=== PATIENT | female | born 1960 | race Caucasian/White ===

== ENCOUNTER 2018-05-26 13:54 | Observation (INO) | payer SELFPAY ==
[2018-05-26] MEDS ORDERED: Sodium Chloride 0.9% 1000 ML 1,000 ML IV SCH (16:30)
[2018-05-26 16:39] LABS: Hematocrit 53.7 % (35-47); Hemoglobin 18.7 gm/dl (12.0-16.0); Mean Cell Volume 92.4 fl (78-100); Mean Corpuscular Hgb Concent. 34.8 g/dl (32-36); Platelet Count 71 K/mm3 (150-450); Red Blood Count 5.81 M/mm3 (4.1-5.4); White Blood Count 9.3 K/mm3 (4.0-10.5)
[2018-05-26 16:51] LABS: Mean Corpuscular Hemoglobin 32.1 pg (26-32)
[2018-05-26] MEDS: Lasix 40 MG PO SCH (17:00)
[2018-05-26] MEDS: Apresoline 25 MG TABLET PO SCH ×2 (17:00→22:10)
[2018-05-26] MEDS: Toprol Xl 50 MG PO SCH (17:01)
[2018-05-26 17:03] LABS: ALBUMIN 3.8 g/dL (3.5-5.0); ALKALINE PHOSPHATASE 101 U/L (38-126); AMYLASE 56 U/L (30-110); ANION GAP 11.6 MEQ/L (5-15); BLOOD UREA NITROGEN 8 mg/dL (7-17); CHLORIDE 90 mmol/L (98-107); Calcium 8.6 mg/dL (8.4-10.2); Carbon Dioxide 36 mmol/L (22-30); Creatinine 1 0.84 mg/dL (0.52-1.04); Glucose 123 mg/dL (74-106); SGOT/AST 23 U/L (14-36); SGPT/ALT 12 U/L (0-35); SODIUM 136 mmol/L (137-145); Total Protein 6.8 g/dL (6.3-8.2)
[2018-05-26 17:13] LABS: LIPASE < 10 U/L (23-300); Potassium 2.9 mmol/L (3.5-5.1)
[2018-05-26 17:23] LABS: Appearance CLOUDY (CLEAR); Bilirubin NEGATIVE (NEGATIVE); Blood NEGATIVE Ery/ul (0-5); Glucose NEGATIVE (NEGATIVE); Ketones NEGATIVE (NEGATIVE); Leukocyte Esterase SMALL (NEGATIVE); Nitrite NEGATIVE (NEGATIVE); Protein,Urine Dip >=500 (Negative); Specific Gravity 1.015 (1.005-1.025); Urobilinogen 2 mg/dL (0-1)
[2018-05-26] MEDS: POTASSIUM CHLORIDE 20 mEq IN WATER 100ML 20 MEQ/100 ML BAG IV SCH ×2 (17:40→22:01)
[2018-05-26] MEDS: Sodium Chloride 0.9% 1000 ML 1,000 ML IV SCH (17:55)
[2018-05-26] MEDS ORDERED: Hydromorphone 1 mg/ml Ampule IV PRN (18:12)
[2018-05-26] MEDS ORDERED: Phenergan 25 MG INJ IV PRN (18:13)
[2018-05-26] MEDS ORDERED: Phenergan 25 MG INJ ONE (19:01)
[2018-05-26] MEDS ORDERED: DILAUDID 2 MG INJECTION ONE (19:02)
[2018-05-26 19:05] LABS: Slide Review YES
[2018-05-26] MEDS: DILAUDID 2 MG INJECTION IV PRN (19:14)
[2018-05-26] MEDS: Phenergan 25 MG INJ IV PRN (19:14)
[2018-05-26] MEDS ORDERED: BENADRYL 25 MG CAPSULE PO SCH (22:00)
[2018-05-26] MEDS ORDERED: DP HYDRAM HCL PO SCH (22:00)
[2018-05-26] MEDS ORDERED: Nicoderm CQ 21 MG TOP SCH (22:00)
[2018-05-26] MEDS ORDERED: ACETAMINOPHEN PO SCH (22:00)
[2018-05-26] MEDS ORDERED: NON-FORMULARY ITEM (Hydralazine Hcl [Hydralazine Hcl] 50 MG) PO SCH (22:00)
[2018-05-26] MEDS ORDERED: DESYREL 50 MG PO SCH (22:00)
[2018-05-26] MEDS ORDERED: TYLENOL EXTRA STRENGTH 500 MG PO SCH (22:00)
[2018-05-26] MEDS: Zanaflex 4 MG PO SCH ×2 (22:17→22:33)
[2018-05-27] MEDS: Sodium Chloride 0.9% 1000 ML 1,000 ML IV SCH (04:39)
[2018-05-27] MEDS: Phenergan 25 MG INJ IV PRN (06:13)
[2018-05-27] MEDS: Zofran 4 MG/2 ML VIAL IV PRN ×2 (07:20→13:23)
[2018-05-27] MEDS: DILAUDID 2 MG INJECTION IV PRN ×2 (07:20→13:22)
--- NOTE | 2018-05-27 08:35 | XRAY ---
Indication: Abdominal pain one month. Nausea, vomiting, and bloating. Multiple contiguous axial images obtained through the abdomen and pelvis using enteric contrast only. Comparison: CTA August 17, 2013. Lung bases again demonstrates minimal bibasilar atelectasis/scarring. No infiltrate or effusion. Heart is now enlarged. Again small hiatal hernia. Contrasted stomach and bowel loops appear nonobstructed. Previous reported appendectomy. Rectum now demonstrates circumferential wall thickening with stranding favoring proctitis. Liver also demonstrates new micro-lobular margins favoring cirrhosis. New small abdominal and pelvic ascites. No walled off fluid collection or free air. Stable right renal cortical scarring with calcification. Also interval enlarging 1.9 cm right renal exophytic cyst. Stable small calcified uterine fibroid. Remaining liver, gallbladder, pancreas, spleen, adrenal glands, kidneys, ureters, bladder, and uterus appear unremarkable for noncontrast exam. There remains heavy aortoiliac calcifications without AAA. Osseous structures intact again with lumbosacral junction degenerative disc disease. Stable tiny fatty umbilical hernia. Impression: 1. New rectal wall thickening with stranding favoring proctitis. 2. New cirrhotic liver with small abdomen/pelvic ascites. 3. New cardiomegaly without CHF. 4. Stable right renal scarring with enlarging exophytic cyst. 5. Stable small hiatal hernia, calcified uterine fibroid, heavy arteriosclerotic calcifications, and tiny fatty umbilical hernia. CT DI 22.88
--- NOTE | 2018-05-27 08:37 | XRAY ---
Indication: Abdomen pain. Two-dimensional gallbladder sonogram performed. Comparison: None Gallbladder normally distended without gallstones, wall thickening, or pericholecystic fluid. Common bile duct measures 4.7 mm. Visualized portions of the liver are homogeneous in echogenicity. No large ascites. Remaining visualized pancreas and right kidney sonographically unremarkable. Right kidney measures 11.1 cm in length. Impression: Negative gallbladder sonogram.
[2018-05-27] MEDS: Toprol Xl 50 MG PO SCH (09:45)
[2018-05-27] MEDS: Lasix 40 MG PO SCH (09:45)
[2018-05-27] MEDS: Apresoline 25 MG TABLET PO SCH (09:45)
--- NOTE | 2018-05-27 11:50 | PCM.HP.ADD ---
Addendum to History & Physical - History & Physical Addendum Addendum to History & Physical: This certifies that the History & Physical in the electronic chart reflects the current health status of the patient. If there are changes in the H&P these changes/exceptions are listed as follows.
--- NOTE | 2018-05-27 11:55 | PCM.NOTE ---
Date and Time: 05/27/18 1153 Subjective Assessment: c/o abdominal pain - Review of Systems Constitutional: No Fever, No Chills Eyes: No Symptoms Ears, Nose, & Throat: No Symptoms Respiratory: No Cough, No Short Of Breath Cardiac: No Chest Pain, No Edema, No Syncope Abdominal/Gastrointestinal: Abdominal Pain, Nausea, Vomiting, No Diarrhea Genitourinary Symptoms: No Dysuria Musculoskeletal: No Back Pain, No Neck Pain Skin: No Rash Neurological: No Dizziness, No Focal Weakness, No Sensory Changes Psychological: No Symptoms Endocrine: No Symptoms Hematologic/Lymphatic: No Symptoms Immunological/Allergic: No Symptoms Objective Exam General Appearance: mild distress, alert Neurologic Exam: alert, oriented x 3, cooperative, normal mood/affect, nml cerebellar function, sensation nml, No motor deficits Skin Exam: normal color, warm, dry Eye Exam: PERRL, EOMI, eyes nml inspection Ears, Nose, Throat Exam: normal ENT inspection, pharynx normal, moist mucous membranes Neck Exam: normal inspection, non-tender, supple, full range of motion Respiratory Exam: normal breath sounds, lungs clear, No respiratory distress Cardiovascular Exam: regular rate/rhythm, normal heart sounds Gastrointestinal/Abdomen Exam: soft, normal bowel sounds, tenderness, distention , No mass, No guarding, No ecchymosis, No hepatomegaly, No organomegaly, No splenomegaly Extremity Exam: normal inspection, normal range of motion Back Exam: normal inspection, normal range of motion, No CVA tenderness, No vertebral tenderness Pelvic Exam: deferred Rectal Exam: deferred OBJECTIVE DATA Vital Signs: Vital Signs - 24 hr Temp Pulse Resp BP Pulse Ox 05/27/18 07:22 98 F 77 20 172/112 98 05/27/18 04:02 98.0 F 54 L 14 144/71 95 05/26/18 23:59 98.1 F 73 16 112/55 91 L 05/26/18 23:45 63 18 92 L 05/26/18 19:47 98.3 F 80 22 234/113 97 05/26/18 15:13 98.7 F 98 H 22 200/108 91 L 05/26/18 14:57 98.7 F 98 H 22 200/108 91 L Oxygen-Last 24 hours O2 Percentage 3 Liters = 32% O2 Percentage 3 Liters = 32% O2 Percentage 3 Liters = 32% Pain Assessment - Last Documented Pain Intensity 10 Pain Scale Used 0-10 Pain Scale Intake and Output: Intake & Output 05/24/18 05/25/18 05/26/18 05/27/18 11:59 11:59 11:59 11:59 Intake Total 2069 Output Total 1800 Balance 269 Weight 110.8 kg Lab Results: Lab Results-Last 24 Hours 05/26/18 05/26/18 05/26/18 Range/Units 16:30 16:30 16:30 WBC 9.3 (4.0-10.5) K/mm3 RBC 5.81 H (4.1-5.4) M/mm3 Hgb 18.7 H (12.0-16.0) gm/dl Hct 53.7 H (35-47) % MCV 92.4 (78-100) fl MCH 32.1 H (26-32) pg MCHC 34.8 (32-36) g/dl RDW 16.0 H (11.5-14.0) % Plt Count 71 L (150-450) K/mm3 Sodium 136 L (137-145) mmol/L Potassium 2.9 L* (3.5-5.1) mmol/L Chloride 90 L (98-107) mmol/L Carbon Dioxide 36 H (22-30) mmol/L Anion Gap 11.6 (5-15) MEQ/L BUN 8 (7-17) mg/dL Creatinine 0.84 (0.52-1.04) mg/dL Estimated GFR > 60.0 ML/MIN Glucose 123 H (74-106) mg/dL Lactic Acid 1.3 (0.4-2.0) Calcium 8.6 (8.4-10.2) mg/dL Total Bilirubin 1.10 (0.2-1.3) mg/dL AST 23 (14-36) U/L ALT 12 (0-35) U/L Alkaline Phosphatase 101 (38-126) U/L Serum Total Protein 6.8 (6.3-8.2) g/dL Albumin 3.8 (3.5-5.0) g/dL Amylase 56 (30-110) U/L Lipase < 10 L (23-300) U/L Urine Color (YELLOW) Urine Appearance (CLEAR) Urine pH (5-6) Ur Specific [place] (1.005-1.025) Urine Protein (Negative) Urine Ketones (NEGATIVE) Urine Blood (0-5) Fawad/ul Urine Nitrite (NEGATIVE) Urine Bilirubin (NEGATIVE) Urine Urobilinogen (0-1) mg/dL Ur Leukocyte Esterase (NEGATIVE) Urine WBC (Auto) (0-5) /HPF Urine RBC (Auto) (0-2) /HPF U Epithel Cells (Auto) (FEW) /HPF Urine Bacteria (Auto) (NEGATIVE) /HPF Urine Mucus (Auto) (NEGATIVE) /HPF Urine Glucose (NEGATIVE) mg/dL Slides for Path Review YES 05/26/18 05/27/18 Range/Units 16:50 04:47 WBC (4.0-10.5) K/mm3 RBC (4.1-5.4) M/mm3 Hgb (12.0-16.0) gm/dl Hct (35-47) % MCV (78-100) fl MCH (26-32) pg MCHC (32-36) g/dl RDW (11.5-14.0) % Plt Count (150-450) K/mm3 Sodium (137-145) mmol/L Potassium 3.1 L (3.5-5.1) mmol/L Chloride (98-107) mmol/L Carbon Dioxide (22-30) mmol/L Anion Gap (5-15) MEQ/L BUN (7-17) mg/dL Creatinine (0.52-1.04) mg/dL Estimated GFR ML/MIN Glucose (74-106) mg/dL Lactic Acid (0.4-2.0) Calcium (8.4-10.2) mg/dL Total Bilirubin (0.2-1.3) mg/dL AST (14-36) U/L ALT (0-35) U/L Alkaline Phosphatase (38-126) U/L Serum Total Protein (6.3-8.2) g/dL Albumin (3.5-5.0) g/dL Amylase (30-110) U/L Lipase (23-300) U/L Urine Color YELLOW (YELLOW) Urine Appearance CLOUDY (CLEAR) Urine pH 6.0 (5-6) Ur Specific [place] 1.015 (1.005-1.025) Urine Protein >=500 (Negative) Urine Ketones NEGATIVE (NEGATIVE) Urine Blood NEGATIVE (0-5) Fawad/ul Urine Nitrite NEGATIVE (NEGATIVE) Urine Bilirubin NEGATIVE (NEGATIVE) Urine Urobilinogen 2 (0-1) mg/dL Ur Leukocyte Esterase SMALL (NEGATIVE) Urine WBC (Auto) 6-10 (0-5) /HPF Urine RBC (Auto) 6-10 (0-2) /HPF U Epithel Cells (Auto) MANY (FEW) /HPF Urine Bacteria (Auto) RARE (NEGATIVE) /HPF Urine Mucus (Auto) SLIGHT (NEGATIVE) /HPF Urine Glucose NEGATIVE (NEGATIVE) mg/dL Slides for Path Review Radiology Exams: Radiology Procedures Category Date Time Status ABDOMEN AND PELVIS W/0 CONTRAS [CT] Routine Exams 05/26/18 19:05 Completed GALLBLADDER [US] Routine Exams 05/27/18 08:00 Completed Multi-Disciplinary Progress Notes: Multi-Disciplinary Progress Notes 05/27/18 06:16 Respiratory Note by Ermias Madrigal NURSING/[employer] CALLED TO STATE THAT PT SATS WERE IN LOW 80'S AND THAT THEY HAD PLACED PT ON 3LPM O2. WENT TO ASSESS PT AND SATS WERE 92% ON 3LPM. I WAS NOTIFIED BY [employer] AND NURSING THAT WHEN PT IS ACTIVE OR ASLEEP SATS DROP QUICKLY. I WILL PASS INFO ON TO DAY SHIFT. Initialized on 05/27/18 06:16 - END OF NOTE Assessment/Plan (1) Chronic liver disease and cirrhosis Current Visit: Yes Status: Acute Code(s): K74.60 - UNSPECIFIED CIRRHOSIS OF LIVER; K76.9 - LIVER DISEASE, UNSPECIFIED (2) Proctitis Current Visit: Yes Status: Acute Code(s): K62.89 - OTHER SPECIFIED DISEASES OF ANUS AND RECTUM (3) HTN (hypertension) Current Visit: Yes Status: Acute Qualifiers: Hypertension type: essential hypertension Qualified Code(s): I10 - Essential (primary) hypertension Code(s): I10 - ESSENTIAL (PRIMARY) HYPERTENSION (4) Abdominal pain Current Visit: Yes Status: Acute Qualifiers: Abdominal location: right upper quadrant Qualified Code(s): R10.11 - Right upper quadrant pain Code(s): R10.9 - UNSPECIFIED ABDOMINAL PAIN
[2018-05-27 12:28] VITALS: BP 168/80
--- NOTE | 2018-05-27 12:55 | PCM.DCORD ---
- Discharge Discharge Date: 05/27/18 Disposition: [facility] Condition: Stable Prescriptions: No Action Trazodone HCl 50 mg [Desyrel 50 mg] 100 mg PO HS Hydralazine HCl 50 mg TID Tizanidine HCl 4 mg [Zanaflex 4 MG] 4 mg PO HS Metoprolol Succinate 50 mg [Toprol Xl 50 MG] 50 mg PO DAILY Furosemide 40 mg [Lasix 40 MG] 40 mg PO DAILY Acetaminophen/Dp-Hydram HCl [Tylenol P.m. Ex-Str Geltab] 2 each PO HS Follow up with: KASSIE COSTELLO MD [Primary Care Provider] - 06/06/18 2:15 pm
[2018-05-27 13:45] VITALS: PULSE 61; O2SAT 97
== END 2018-05-27 13:30 | disposition short-term general hospital (02) ==
LOC: MED SURG 14:34
PROVIDERS: ADMIT General Practice; ATTEND General Practice
DX: R10.11 Right upper quadrant pain (principal); K74.60 Unspecified cirrhosis of liver; K62.89 Other specified diseases of anus and rectum; K59.00 Constipation, unspecified; I10 Essential (primary) hypertension
CPT/HCPCS: 36415; 74176; 76705; 80053; 81001; 82150; 83605; 83690; 84132; 85027; 87801; 93268; 94760; G0378; J1170; J2405; J2550; J3480; A9270-GY

== ENCOUNTER 2018-07-21 19:15 | Emergency (ER) | payer SELFPAY ==
--- NOTE | 2018-07-21 19:39 | ERPHSYRPT ---
- History of Present Illness Time Seen by Provider: 07/21/18 19:34 Historian: patient, EMS Exam Limitations: no limitations Patient Subjective Stated Complaint: chest pain Triage Nursing Assessment: Patient brought into ED per EMS and transferred to bed. Patient A+O X 3. Patient complains of Chest pain for one hour prior to calling 911. Patient complains of chest pain in the middle of chest 11/30. Patient had Nitro X 1 in ambulance. Lungs noted to be clear a/p vinayak. S1-S2 heart tones audible. Patient has 2+ non pitting edema to BLE. Physician History: The patient is a 58-year-old female with her brought in by ambulance from home where she complains of a sudden onset of chest pain that began epigastric region while she was resting. The pain began less than an hour ago. She is now completely chest pain-free. She states her chest pain disappeared when the ambulance crew drove over the railroad tracks. The chest pain started like a pinpoint fire and spread throughout her chest. She denies shortness of breath, nausea, or sweating. Her past medical history is significant for recent CO last week where she was treated at [facility] for 4 days. She states she was sent home on nothing new except [facility] penicillin that she did not take because of an allergy, hypertension, possible CHF, appendectomy, and C-sections. The patient smokes. Timing/Duration: today, hour(s) (1), resolved prior to arrival, sudden Activities at Onset: rest Quality: burning Location: central (began in eipigastric area) Chest Pain Radiation: no radiation Severity of Pain-Max: severe Severity of Pain-Current: none Modifying Factors: Improves With: nothing Associated Symptoms: denies symptoms Prior Chest Pain/Cardiac Workup: heart attack, recently seen/treated, recent hospitalization Nitro Today/Relief: no nitro taken today Aspirin Treatment Today: no aspirin today Allergies/Adverse Reactions: Penicillins Allergy (Mild, Verified 07/21/18 19:31) codeine [Codeine] Allergy (Verified 07/21/18 19:31) Home Medications: Trazodone HCl 50 mg [Desyrel 50 mg] 100 mg PO HS 08/11/13 [History] Hydralazine HCl 50 mg TID 09/11/13 [History] Acetaminophen/Dp-Hydram HCl [Tylenol P.m. Ex-Str Geltab] 2 each PO HS 05/26/18 [ History] Furosemide 40 mg [Lasix 40 MG] 40 mg PO DAILY 05/26/18 [History] Metoprolol Succinate 50 mg [Toprol Xl 50 MG] 50 mg PO DAILY 05/26/18 [ History] Tizanidine HCl 4 mg [Zanaflex 4 MG] 4 mg PO HS 05/26/18 [History] Hx Tetanus, Diphtheria Vaccination/Date Given: No Hx Influenza Vaccination/Date Given: No Hx Pneumococcal Vaccination/Date Given: No - Review of Systems Constitutional: No Fever, No Chills Eyes: No Symptoms Ears, Nose, & Throat: No Symptoms Respiratory: No Cough, No Dyspnea Cardiac: Chest Pain Abdominal/Gastrointestinal: No Abdominal Pain, No Nausea, No Vomiting, No Diarrhea Genitourinary Symptoms: No Dysuria Musculoskeletal: No Back Pain, No Neck Pain Skin: No Rash Neurological: No Dizziness, No Focal Weakness, No Sensory Changes Psychological: No Symptoms Endocrine: No Symptoms Hematologic/Lymphatic: No Symptoms Immunological/Allergic: No Symptoms All Other Systems: Reviewed and Negative - Past Medical History Pertinent Past Medical History: Yes Neurological History: No Pertinent History ENT History: No Pertinent History Cardiac History: Congestive Heart Failure, High Cholesterol, Hypertension, Myocardial Infarction (CO) Respiratory History: COPD Endocrine Medical History: No Pertinent History Musculoskeletal History: Arthritis GI Medical History: GERD History: No Pertinent History Psycho-Social History: Bipolar, Other Female Reproductive Disorders: No Pertinent History Other Medical History: schizophrenic - Past Surgical History Past Surgical History: Yes Neuro Surgical History: No Pertinent History Cardiac: No Pertinent History Respiratory: Other Gastrointestinal: Appendectomy Genitourinary: No Pertinent History Musculoskeletal: No Pertinent History Female Surgical History: Section Other Surgical History: RIGHT UPPER LOBE LUNG RESECTION FOR BIOPSY - Social History Smoking Status: Current every day smoker How long have you smoked: 46 years Exposure to second hand smoke: Yes Drug Use: none Patient Lives Alone: No - Female History Hx Now: No - Nursing Vital Signs Nursing Vital Signs: Initial Vital Signs Temperature 99.3 F 07/21/18 19:16 Pulse Rate 58 L 07/21/18 19:16 Respiratory Rate 21 07/21/18 19:16 Blood Pressure 156/78 07/21/18 19:16 O2 Sat by Pulse Oximetry 100 07/21/18 19:16 Pain Scale Pain Intensity 4 - Physical Exam General Appearance: no apparent distress, alert Eye Exam: PERRL/EOMI, eyes nml inspection Ears, Nose, Throat Exam: normal ENT inspection, moist mucous membranes Neck Exam: normal inspection, non-tender, supple, full range of motion Respiratory Exam: normal breath sounds, lungs clear, No respiratory distress Cardiovascular Exam: regular rate/rhythm, normal heart sounds Gastrointestinal/Abdomen Exam: soft, No tenderness, No mass Pelvic Exam: not done Rectal Exam: not done Back Exam: normal inspection, No CVA tenderness, No vertebral tenderness Extremity Exam: normal inspection, normal range of motion Neurologic Exam: alert, oriented x 3, cooperative, normal mood/affect, sensation nml, No motor deficits Skin Exam: jaundice (face) SpO2 Interpretation: normal SpO2: 100 Oxygen Delivery: Room Air - Course EKG Interpreted by Me: RATE, Sinus Carlos, Left [place] Deviation, NORMAL INTERVALS , NORMAL QRS, NORMAL ST-T (inverted T waves in V2 and V3 ), Other (recent anterior CO, comp EKG from 08/17/13.) - Radiology Exams Chest X-ray Interpretation: Interpreted by me, Negative (comp 1V chest 08/15/13.) Ordered Tests: Active Orders 24 hr Category Date Time Status Fisher Diving STAT Care 07/21/18 19:43 Active Clean Catch Urine Specimen STAT Care 07/21/18 19:42 Active EKG-ER Only STAT Care 07/21/18 19:42 Active IV Insertion STAT Care 07/21/18 19:42 Active Oxygen-ED Only NASAL CANNULA 2 lpm Care 07/21/18 19:42 Active Pulse Oximetry (ED) STAT Care 07/21/18 19:42 Active CHEST 1 VIEW (PORTABLE) Stat Exams 07/21/18 20:04 Taken CBC W DIFF Stat Lab 07/21/18 20:30 Received CMP Stat Lab 07/21/18 20:30 Received Manual Differential NC Stat Lab 07/21/18 20:30 Completed NT PRO BNP Stat Lab 07/21/18 20:30 Received PROTIME WITH INR Stat Lab 07/21/18 20:30 Completed TROPONIN Q3H Lab 07/21/18 20:30 Received TROPONIN Q3H Lab 07/21/18 22:45 Ordered TROPONIN Q3H Lab 07/22/18 01:45 Ordered TROPONIN Q3H Lab 07/22/18 04:45 Ordered TROPONIN Q3H Lab 07/22/18 07:45 Ordered Urine Triage Profile Stat Lab 07/21/18 20:37 Ordered Medication Summary Generic Name Dose Route Start Last Admin Trade Name Koq PRN Reason Stop Dose Admin Potassium Chloride 100 mls @ 50 mls/hr 07/21/18 21:26 07/21/18 21:40 Potassium Chloride 20 Meq In Water 100ml IV 07/21/18 23:25 50 mls/hr STAT ONE Administration Sodium Chloride 1,000 mls @ 100 mls/hr 07/21/18 21:30 07/21/18 21:37 Sodium Chloride 0.9% 1000 Ml IV 08/20/18 21:29 100 mls/hr .Q10H KAREEN Administration Discontinued Medications Generic Name Dose Route Start Last Admin Trade Name Koq PRN Reason Stop Dose Admin Aspirin 324 mg 07/21/18 19:42 07/21/18 20:08 Baby Aspirin 81 Mg Chew PO 07/21/18 19:43 324 mg STAT ONE Administration Aspirin Confirm 07/21/18 19:54 Baby Aspirin 81 Mg Chew Administered 07/21/18 19:55 Dose 324 mg .ROUTE .STK-MED ONE Famotidine 20 mg 07/21/18 19:42 07/21/18 20:09 Pepcid 20 Mg Vial IV 07/21/18 19:43 20 mg STAT ONE Administration Famotidine Confirm 07/21/18 19:51 Pepcid 20 Mg Vial Administered 07/21/18 19:52 Dose 20 mg IV .STK-MED ONE Potassium Chloride Confirm 07/21/18 21:33 Potassium Chloride 20 Meq In Water 100ml Administered 07/21/18 21:34 Dose 100 mls @ ud IV .STK-MED ONE Potassium Chloride 40 meq 07/21/18 21:27 07/21/18 21:35 Klor Con 10 Meq PO 07/21/18 21:28 40 meq STAT ONE Administration Potassium Chloride Confirm 07/21/18 21:32 Klor Con 10 Meq Administered 07/21/18 21:33 Dose 40 meq PO .STK-MED ONE Lab/Rad Data: Laboratory Result Diagrams 07/21/18 20:30 11/29/18 20:30 Laboratory Results 07/21/18 07/21/18 07/21/18 Range/Units 20:30 20:30 20:30 WBC (4.0-10.5) K/mm3 RBC (4.1-5.4) M/mm3 Hgb (12.0-16.0) gm/dl Hct (35-47) % MCV (78-100) fl MCH (26-32) pg MCHC (32-36) g/dl RDW (11.5-14.0) % Plt Count (150-450) K/mm3 Gran % (36.0-66.0) % Eos # (Auto) (0-0.5) Absolute Lymphs (auto) (1.0-4.6) Absolute Monos (auto) (0.0-1.3) Lymphocytes % (24.0-44.0) % Monocytes % (0.0-12.0) % Eosinophils % (0.00-5.0) % Basophils % (0.0-0.4) % Absolute Granulocytes (1.4-6.9) Basophils # (0-0.4) PT 15.4 H (9.95-12.35) SECONDS INR 1.32 (0.8-3.0) Sodium 133 L (137-145) mmol/L Potassium 2.6 L* (3.5-5.1) mmol/L Chloride 90 L (98-107) mmol/L Carbon Dioxide 35 H (22-30) mmol/L Anion Gap 11.2 (5-15) MEQ/L BUN 15 (7-17) mg/dL Creatinine 0.78 (0.52-1.04) mg/dL Estimated GFR > 60.0 ML/MIN Glucose 108 H (74-106) mg/dL Calcium 7.9 L (8.4-10.2) mg/dL Total Bilirubin 1.10 (0.2-1.3) mg/dL AST 32 (14-36) U/L ALT 23 (0-35) U/L Alkaline Phosphatase 62 (38-126) U/L Troponin I 0.092 H* (0.000-0.034) ng/mL NT-Pro-B Natriuret Pep 6220 H (0-900) pg/mL Serum Total Protein 5.8 L (6.3-8.2) g/dL Albumin 3.0 L (3.5-5.0) g/dL 07/21/18 Range/Units 20:30 WBC 4.2 (4.0-10.5) K/mm3 RBC 4.24 (4.1-5.4) M/mm3 Hgb 14.2 (12.0-16.0) gm/dl Hct 40.5 (35-47) % MCV 95.5 (78-100) fl MCH 33.5 H (26-32) pg MCHC 35.1 (32-36) g/dl RDW 17.6 H (11.5-14.0) % Plt Count 44 L (150-450) K/mm3 Gran % 58.2 (36.0-66.0) % Eos # (Auto) 0.10 (0-0.5) Absolute Lymphs (auto) 1.18 (1.0-4.6) Absolute Monos (auto) 0.46 (0.0-1.3) Lymphocytes % 28.0 (24.0-44.0) % Monocytes % 10.9 (0.0-12.0) % Eosinophils % 2.4 (0.00-5.0) % Basophils % 0.5 (0.0-0.4) % Absolute Granulocytes 2.45 (1.4-6.9) Basophils # 0.02 (0-0.4) PT (9.95-12.35) SECONDS INR (0.8-3.0) Sodium (137-145) mmol/L Potassium (3.5-5.1) mmol/L Chloride (98-107) mmol/L Carbon Dioxide (22-30) mmol/L Anion Gap (5-15) MEQ/L BUN (7-17) mg/dL Creatinine (0.52-1.04) mg/dL Estimated GFR ML/MIN Glucose (74-106) mg/dL Calcium (8.4-10.2) mg/dL Total Bilirubin (0.2-1.3) mg/dL AST (14-36) U/L ALT (0-35) U/L Alkaline Phosphatase (38-126) U/L Troponin I (0.000-0.034) ng/mL NT-Pro-B Natriuret Pep (0-900) pg/mL Serum Total Protein (6.3-8.2) g/dL Albumin (3.5-5.0) g/dL - Progress Progress: improved Air Movement: good Progress Note: 07/21/18 21:30 Serum potassium is 2.6. Give pot 20 mEq keven plus potass 40 mEq po. 07/21/18 21:50 Dr Costello accepts pt to [facility]. 07/21/18 21:55 Pt has elevated troponin 0.092 that is due to recent CO. Genoveva aware of troponin level. Blood Culture(s) Obtained: No Antibiotics given: No Discussed with .: Genoveva Will see patient in: hospital (observation) Counseled pt/family regarding: lab results, diagnosis, rad results - Departure Time of Disposition: 21:51 Departure Disposition: Observation (pler Dr Costello) Clinical Impression: Chest pain, Hypokalemia Condition: Stable Critical Care Time: No Referrals: KASSIE COSTELLO MD [Primary Care Provider] -
[2018-07-21] MEDS ORDERED: Pepcid 20 MG VIAL IV ONE ×2 (19:42→19:51)
[2018-07-21] MEDS ORDERED: BABY ASPIRIN 81 MG CHEW PO ONE (19:42)
[2018-07-21] MEDS ORDERED: BABY ASPIRIN 81 MG CHEW ONE (19:54)
[2018-07-21 20:52] LABS: BASOPHIL % 0.5 % (0.0-0.4); Basophil (Absolute #) 0.02 (0-0.4); Eosinophil % 2.4 % (0.00-5.0); Granulocyte Absolute (ANC) 2.45 (1.4-6.9); Granulocytes % 58.2 % (36.0-66.0); Hematocrit 40.5 % (35-47); Hemoglobin 14.2 gm/dl (12.0-16.0); Lymphocyte (Absolute #) 1.18 (1.0-4.6); Mean Cell Volume 95.5 fl (78-100); Mean Corpuscular Hemoglobin 33.5 pg (26-32); Mean Corpuscular Hgb Concent. 35.1 g/dl (32-36); Monocyte (Absolute #) 0.46 (0.0-1.3); Monocytes % 10.9 % (0.0-12.0); Platelet Count 44 K/mm3 (150-450); Red Blood Count 4.24 M/mm3 (4.1-5.4); Red Cell Distribution Width 17.6 % (11.5-14.0); White Blood Count 4.2 K/mm3 (4.0-10.5)
[2018-07-21 20:56] LABS: INR 1.32 (0.8-3.0)
[2018-07-21 21:09] LABS: ALKALINE PHOSPHATASE 62 U/L (38-126); ANION GAP 11.2 MEQ/L (5-15); BLOOD UREA NITROGEN 15 mg/dL (7-17); CHLORIDE 90 mmol/L (98-107); Calcium 7.9 mg/dL (8.4-10.2); Carbon Dioxide 35 mmol/L (22-30); Creatinine 1 0.78 mg/dL (0.52-1.04); Glucose 108 mg/dL (74-106); NT PRO BNP 6220 pg/mL (0-900); SGOT/AST 32 U/L (14-36); SGPT/ALT 23 U/L (0-35); SODIUM 133 mmol/L (137-145); Total Protein 5.8 g/dL (6.3-8.2)
[2018-07-21 21:11] VITALS: BP 174/89
[2018-07-21 21:21] LABS: Potassium 2.6 mmol/L (3.5-5.1)
[2018-07-21] MEDS ORDERED: POTASSIUM CHLORIDE 20 mEq IN WATER 100ML 100 ML IV ONE ×2 (21:26→21:33)
[2018-07-21] MEDS ORDERED: Klor Con 10 MEQ PO ONE ×2 (21:27→21:32)
[2018-07-21] MEDS ORDERED: Sodium Chloride 0.9% 1000 ML 1,000 ML IV SCH (21:30)
[2018-07-21 21:31] VITALS: O2SAT 100
[2018-07-21] MEDS ORDERED: Sodium Chloride 0.9% 1000 ML 1,000 ML ONE (21:33)
[2018-07-21 21:55] VITALS: PULSE 64
[2018-07-21 21:57] LABS: Amphetamine,Urine NEGATIVE (NEGATIVE); Barbiturate,Urine NEGATIVE (NEGATIVE); Benzodiazepine,Urine NEGATIVE (NEGATIVE); Cocaine,Urine NEGATIVE (NEGATIVE); Methadone,Urine NEGATIVE (NEGATIVE); Opiate,Urine NEGATIVE (NEGATIVE); PCP,Urine NEGATIVE (NEGATIVE); THC,Urine NEGATIVE (NEGATIVE)
[2018-07-22 05:43] LABS: ANISOCYTOSIS 2+; Basophil 1 % (0.0-1.0); Eosinophil 5 % (0.00-3.0); Lymphocytes 30 % (24-44); Monocyte 10 % (0.0-12.0); Neutrophils 54 % (36.0-66.0); Platelet Estimate DECREASED (NORMAL); Poikilocytosis 1+; Total Cells Counted 100
--- NOTE | 2018-07-22 08:50 | XRAY ---
Indication: Chest pain. Comparison: September 11, 2013. Portable chest unchanged again demonstrating normal heart, lungs, and bony thorax with right mid lung suture material. No new/acute findings.
== END 2018-07-21 22:18 | disposition left against medical advice (07) ==
LOC: ED 19:15
DX: R07.9 Chest pain, unspecified (principal); E87.6 Hypokalemia; I25.2 Old myocardial infarction; Z79.899 Other long term (current) drug therapy
CPT/HCPCS: 36415; 71045; 80053; 80307; 83880; 84484; 85025; 85610; 93005; 93041; 96360; 96374; 99284; J3480; A9270-GY